=== PATIENT | female | born 1960 | race Caucasian/White ===

== ENCOUNTER 2016-06-25 21:55 | Emergency (ER) | payer MEDICAID ==
[~2016-06-25] VITALS: Ht 165.1 cm; Wt 56.8 kg
[~2016-06-25 21:55] MED LIST: DICL75 PO; ESTE400C PO; FIBE625T24 PO; FOSA70TA PO; HYDR-3533 PO; OMEG100010 PO; PRED5TAB PO; SULF500T9 PO; VITD400 PO
[2016-06-25 22:05] VITALS: BP 136/77; PULSE 63; RESP 20; TEMP 98.3; O2SAT 100
[2016-06-26] MEDS ORDERED: FOLI5CAP PO (01:09)
[2016-06-26] MEDS ORDERED: PRED5TAB PO (01:09)
[2016-06-26] MEDS ORDERED: NATU400T PO (01:09)
[2016-06-26] MEDS ORDERED: BIOT1000 PO (01:09)
[2016-06-26] MEDS ORDERED: OMEGCAP PO (01:09)
[2016-06-26] MEDS ORDERED: METH2.5T PO (01:09)
[2016-06-26] MEDS ORDERED: HYDR30CR2 RECTAL (01:55)
--- NOTE | 2016-06-26 01:57 | PD ---
HPI Chief Complaint: [employer] Problem/Complaint Time Seen by Provider: 11:23 Travel History International Travel<30 days: No Contact w/Intl Traveler<30days: No Traveled to known affect area: No History of Present Illness HPI 56-year-old female presents to the emergency department for complaint of painful mass to the rectum/perineum area 2 days. Patient denies fever chills nausea vomiting vaginal bleeding dysuria frequency urgency constipation change in bowel movements or rectal bleeding. Patient rates pain at worst 6/10 intensity presently 2/10 intensity. PFSH Past Medical History Narrative Medical Arthritis hypertension; hysterectomy orthopedic surgeries; no tobacco use; nursing notes reviewed Arthritis: Yes (RA) Cancer: No Diabetes: No Diminished Hearing: No Hepatitis: No Hiatal Hernia: No Hypertension: Yes Thyroid Disease: No PNEUMOCCOCAL Vaccine (Year): 2 : 1 Para: 1 Past Surgical History Abdominal Surgery: Yes Ear Surgery: No Endocrine Surgery: No Eye Surgery: No Genitourinary Surgery: No Gynecologic Surgery: Yes Hysterectomy: Yes (1994) Joint Replacement: Yes (BILATERAL KNUCKLE REPLACEMENTS) Oral Surgery: Yes (COMPLETE REMOVAL OF TEETH) Pacemaker: No Thoracic Surgery: No Other Surgery: Yes Social History Alcohol Use: No Tobacco Use: No Substance Use: No Allergies-Medications (Allergen,Severity, Reaction): Coded Allergies: No Known Allergies (Unverified , 06/26/16) Reported Meds & Prescriptions Reported Meds & Active Scripts Active Analpram-Hc Rectal (Hydrocortisone-Pramoxine Rectal) 2.5-1% Cream 1 Applic RECTAL QID PRN Apply as a thin film Reported Methotrexate 2.5 Mg Tab 2.5 Mg PO Q7D Biotin 1,000 Mcg Tab 1,000 Mg PO Folic Acid 5 Mg Cap 1 Mg PO DAILY Vitamin E 400 Unit Tab 400 Units PO DAILY Prednisone 5 Mg Tab 5 Mg PO DAILY [place]-3 Fish Oil/Vitamin (Fish Oil-Cholecalciferol) 1,000-1,000 Mg Cap 1 Cap PO DAILY Review of Systems Except as stated in HPI: all other systems reviewed are Neg General / Constitutional: No: Fever, Chills HENT: No: Congestion Cardiovascular: No: Chest Pain or Discomfort Respiratory: No: Shortness of Breath Gastrointestinal: No: Abdominal Pain Genitourinary: No: Decreased Urinary Output Musculoskeletal: No: Myalgias, Arthralgias Skin: Positive Lumps, No Rash Neurologic: No: Weakness Psychiatric: No: Anxiety Hematologic/Lymphatic: No: Lymph Node Enlargement Physical Exam Narrative GENERAL: Well-developed well-nourished female in no acute distress no respiratory distress SKIN: Warm and dry. HEAD: Normocephalic. EYES: No scleral icterus. No injection or drainage. NECK: Supple, trachea midline. No JVD or lymphadenopathy. CARDIOVASCULAR: Regular rate and rhythm without murmurs, gallops, or rubs. RESPIRATORY: Breath sounds equal bilaterally. No accessory muscle use. GASTROINTESTINAL: Abdomen soft, non-tender, nondistended. Pelvic/rectal: Pelvic exam is deferred as patient has normal perineum and obvious large prolapsed non-thrombosed external hemorrhoid with superficial excoriation. MUSCULOSKELETAL: No cyanosis, or edema. BACK: Nontender without obvious deformity. No CVA tenderness. Data Data Last Documented VS Vital Signs Date Time Temp Pulse Resp B/P Pulse Ox O2 Delivery O2 Flow Rate FiO2 06/26/16 02:10 69 20 132/74 98 06/25/16 22:05 98.3 MDM Medical Decision Making Medical Screen Exam Complete: Yes Emergency Medical Condition: Yes Medical Record Reviewed: Yes Differential Diagnosis Mass, abscess, hemorrhoids, cyst Narrative Course Patient with obvious prolapsed external hemorrhoid without thrombosis with evidence of superficial excoriation tender to palpation but partially reducible Patient is stable for outpatient management; provided prescription for Analpram ; encouraged to follow-up with her primary care physician and if symptoms do not improve referred to colorectal surgery for possible hemorrhoidectomy Diagnosis Primary Impression: Hemorrhoid Referrals: Colon Rectal Specialist call for appointment Patient Instructions: General Instructions Additional Instructions: Increase fluid hydration Increase dietary fiber May use fiber supplement with increased fluid hydration Follow-up with primary care physician or colorectal surgeon Use topical steroid cream to assist with symptoms Return to the emergency department for any concerns or change in condition Perform warm sitz bath 3-4 times daily Med/Other Pt SpecificInfo: Prescription(s) given Scripts Hydrocortisone-Pramoxine Rectal (Analpram-Hc Rectal)2.5-1% Cream1 Applic RECTAL QID PRN (ITCHING/INFLAMMATION) #1 TUBE Ref 0 Apply as a thin film Prov:Renetta Johnson MD 06/26/16 Disposition: 01 DISCHARGE HOME Condition: Stable Renetta Johnson MD Jun 26, 2016 01:56
[2016-06-26 02:10] VITALS: BP 132/74
[2016-08-15] MEDS ORDERED: FERR1TAB58 PO (10:58)
[2016-08-15] MEDS ORDERED: TIZA4TAB PO (10:58)
[2016-09-14] MEDS ORDERED: DILA2TAB2 PO (11:18)
== END 2016-06-26 02:25 | disposition home or self-care (01) ==
LOC: PHED 21:55
DX: K64.8 Other hemorrhoids (principal); I10 Essential (primary) hypertension
CPT/HCPCS: 99283

== ENCOUNTER → 2016-09-10 | Outpatient (CLI) | payer MEDICAID ==
[~2016-09-10] MED LIST changes: +BIOT1000 PO; -DICL75 PO; +DILA2TAB2 PO; -ESTE400C PO; +FERR1TAB58 PO; -FIBE625T24 PO; +FOLI5CAP PO; -FOSA70TA PO; -HYDR-3533 PO; +HYDR30CR2 RECTAL; +METH2.5T PO; +NATU400T PO; -OMEG100010 PO; +OMEGCAP PO; -SULF500T9 PO; +TIZA4TAB PO; -VITD400 PO
[2016-09-10 11:33] LABS: HEMATOCRIT 36.4 % (35.0-46.0); MEAN CORPUSCULAR HGB CONC 33.4 % (32.0-36.0); PLATELET COUNT 227 TH/MM3 (150-450); RED BLOOD COUNT 4.34 MIL/MM3 (4.00-5.30); RED CELL DISTRIBUTION WIDTH 13.3 % (11.6-17.2); REVIEW FLAG FINAL; WHITE BLOOD COUNT 5.8 TH/MM3 (4.0-11.0)
[2016-09-10 11:37] LABS: PROTHROMBIN TIME - PATIENT 10.5 SEC (9.8-11.6)
[2016-09-10 11:50] LABS: ALT (GPT) 14 U/L (10-53); ANION GAP 8 MEQ/L (5-15); AST (GOT) 13 U/L (15-37); BICARBONATE 29.3 MEQ/L (21.0-32.0); BLOOD UREA NITROGEN 12 MG/DL (7-18); CHLORIDE 105 MEQ/L (98-107); GLOMERULAR FILTRATION RATE 94 ML/MIN (>89); GLUCOSE,FASTING 89 MG/DL (74-99); POTASSIUM 3.5 MEQ/L (3.5-5.1); SODIUM (NA) 142 MEQ/L (136-145)
[2016-09-10 11:52] LABS: ALKALINE PHOSPHATASE 112 U/L (45-117); TOTAL BILIRUBIN ADULT 0.4 MG/DL (0.2-1.0)
--- NOTE | 2016-09-10 12:51 | RADRPT ---
EXAM DATE/TIME: 09/10/2016 12:03 [facility] COMPARISON: No previous studies available for comparison. INDICATIONS : Evaluate for pneumonia, pneumothorax and communicable diseases. Pre-op toe surgery MEDICAL HISTORY : None. SURGICAL HISTORY : None. ENCOUNTER: Initial ACUITY: 1 day PAIN SCORE: 0/10 LOCATION: chest FINDINGS: PA and lateral views of the chest demonstrate the lungs to be symmetrically aerated without evidence of mass, infiltrate or effusion. The cardiomediastinal contours are unremarkable. Osseous structure s are intact. CONCLUSION: No acute disease. Mauricio Beltre MD on September 10, 2016 at 12:50 Board Certified Radiologist. This report was verified electronically.
--- NOTE | 2016-09-11 11:52 | EKG ---
Date Performed: 09/10/2016 Time Performed: 11:20:16 PTAGE: 56 years EKG: SINUS BRADYCARDIA BORDERLINE ECG NO PREVIOUS TRACING DOCTOR: Miguel Nicole Interpretating Date/Time 09/11/2016 11:46:19
== END ==
LOC: CPRE 10:54
PROVIDERS: ATTEND Podiatrist Primary Podiatric Medicine
DX: Z01.810 Encounter for preprocedural cardiovascular examination (principal); Z01.811 Encounter for preprocedural respiratory examination; Z01.812 Encounter for preprocedural laboratory examination; M21.619 Bunion of unspecified foot; M21.969 Unspecified acquired deformity of unspecified lower leg; M20.41 Other hammer toe(s) (acquired), right foot; M06.9 Rheumatoid arthritis, unspecified; R94.31 Abnormal electrocardiogram [ECG] [EKG]
CPT/HCPCS: 36415; 71020; 80053; 85027; 85610; 93005

== ENCOUNTER → 2016-09-14 | Day surgery (SDC) | payer MEDICAID ==
[~2016-09-14] VITALS: Ht 165.1 cm; Wt 55.8 kg
[~2016-09-14] MED LIST changes: +*morphine SULFATE 8 MG/ML PERIprocedure ONLY ONE; +BUPIVACAINE HCL PF 0.5% 30 ML VIAL INFIL ONE; +BUPIVACAINE HCL PF 0.5% 30 ML VIAL ONE; +CHLORHEXIDINE GLUCONATE 2 % 1 PACK (2 CLOTHS) TOPICAL PRN; +DO NOT ADM ANY ANTICOAGULANT DRUGS PRN; +HYDROmorphone HCL 2 MG TAB PO PRN; +HYDROmorphone HCL PF 1 MG/ML VIAL IV PRN; +INSULIN HUMAN REGULAR 1,000 UNITS/10 ML VIAL SQ PRN; +LACTATED RINGER'S 1000 ML IV PRN; +METOPROLOL TARTRATE 25 MG TAB PO PRN; +NALOXONE HCL 0.4 MG/ML AMP IV PRN; +ONDANSETRON HCL 4 MG/2 ML VIAL IV PUSH ONE; +POVIDONE IODINE 5% (ANTISEPSIS KIT) 4 APPLICATIONS EACH NARE PRN; +PROPOFOL 200 MG/20 ML AMP IV ONE; +Post-op Orders (for Pharmacy) MISC XX ONE; +SODIUM CHLORID 0.9% 500 ML IV PRN; +SODIUM CHLORIDE 0.9% FLUSH 10 ML FLUSH IV FLUSH PRN; +SODIUM CHLORIDE 0.9% FLUSH 10 ML FLUSH IV FLUSH SCH; +ceFAZolin 2 GM PREMIX 50 ML IV SCH; +ePHEDrine/NS 25 MG/5 ML SYR IV ONE; +fentaNYL CITRATE 250 MCG/5 ML AMP ONE
[2016-09-14 09:04] VITALS: BP 133/80; PULSE 60; RESP 18; TEMP 97.8; O2SAT 100
--- NOTE | 2016-09-14 11:28 | PD.OP ---
Operative Report Date of Surgery: Sep 14, 2016 Preoperative Diagnosis: (1) Rheumatoid arthritis of foot (2) Hammertoes of both feet Right foot Postoperative Diagnosis: (1) Rheumatoid arthritis of foot (2) Hammertoes of both feet Right foot Procedure: Bradley Chris procedure with excision of all metatarsal heads and phalanxes bases right foot. Hammertoe arthroplasty repair toes two, 3, 4 and 5 right foot Anesthesia: General inhalation Surgeon: Efrain Teixeira DPM Rehab Department Manager(s): None Operation and Findings: Patient was brought to the operating room placed on the operating table in a supine position. A pneumatic ankle cuff was placed around the patient's right ankle after adequate web roll padding. Patient was given general inhalation anesthesia. The right foot was prepped and draped in the usual sterile manner and after the appropriate timeout was performed pneumatic ankle cuff was inflated to 250 mmHg. Total cuff time was 53 minutes. Right foot was lowered to the operating table and should be noted that the patient had a severe rheumatoid foot of the right. Plantar flexed metatarsals hammertoe deformities and bunion deformities of the right foot causing severe pain with ambulation. Attention was directed to the first ray of the right foot where a 6 cm linear incision was made over the metatarsal phalangeal joint medial to the extensor hallucis longus tendon. The incision was deepened down to the level of the bone of the first metatarsal and the base of the proximal phalanx. The head of the first metatarsal and the base of the proximal phalanx were freed up using an oscillating saw they were resected and removed from the wound. Attention was directed to the second interspace of the right foot where a 4 cm linear incision was made. The incision was deepened to the level of the second and third metatarsal heads.. Using sharp dissection and an oscillating saw the second and third metatarsal heads were resected. The bases of the proximal phalanxes of the second and third toes were also resected. Attention was directed to the fourth interspace where a curvilinear incision was made. The fourth metatarsal head and fifth metatarsal metatarsal head were identified and using an oscillating saw the fourth and fifth metatarsal heads where resected from the metatarsal phalangeal joints. Bases of the proximal phalanxes were also resected. Attention was then directed to the second toe where a 1 cm linear incision was made over the proximal interphalangeal joint. Using sharp dissection the head of the proximal phalanx was delivered in the wound and resected. The same procedure was then performed on the third, fourth and fifth toes of the right foot. Subcutaneous tissue was then reapproximated after flushing with copious amounts of sterile saline and closed using 3-0 Vicryl. Incisions of the first ray and second and fourth interspace were closed with surgical skin rosemary. The incisions over the arthroplasties of the second, third, fourth and fifth toes were closed with 4-0 Prolene. After the area appropriate sponge and instrument counts were noted to be correct. The incisions were anesthetized with 20 cc of 0.5% Marcaine plain. The pneumatic ankle cuff was deflated and it should be noted that vastus status returned to all digits of the right foot Bone was sent for pathology. Estimated blood loss was less than 10 cc. Patient tolerated the procedures and anesthesia well and left the OR to PACU in apparent satisfactory condition with all vital signs stable and vascular status intact to the right foot. Efrain Teixeira DPM Sep 14, 2016 11:28
--- NOTE | 2016-09-14 12:03 | RADRPT ---
EXAM DATE/TIME: 09/14/2016 12:32 [facility] COMPARISON: FOOT RIGHT COMPLETE ([id number]), January 24, 2015, 19:10. INDICATIONS : Post-op Estrada-Bradley procedure of right foot. MEDICAL HISTORY : None. SURGICAL HISTORY : Tonsillectomy. Bilateral hand surgeries. ENCOUNTER: Initial ACUITY: 1 day PAIN SCORE: 9/10 LOCATION: Right foot. FINDINGS: The patient is status post resection of the heads of the first through fifth metatarsals. There is al so partial resection of the first proximal phalanx, head of the second and fifth proximal phalanges a nd partial resection base of second phalanx. Overlying skin rosemary are noted and subcutaneous emphys kojo. There is mild soft tissue swelling. Plantar calcaneal spur and dorsal spurring of the tarsal jasmin icular and talus. CONCLUSION: Postsurgical changes are noted. Mauricio Beltre MD on September 14, 2016 at 12:00 Board Certified Radiologist. This report was verified electronically.
[2016-09-14 13:10] VITALS: BP 124/76; PULSE 56; RESP 18; TEMP 97.5; O2SAT 97
== END | disposition home or self-care (01) ==
LOC: HSDC 08:01
PROVIDERS: ATTEND Podiatrist Primary Podiatric Medicine
DX: M20.41 Other hammer toe(s) (acquired), right foot (principal); M21.611 Bunion of right foot; M06.9 Rheumatoid arthritis, unspecified; I10 Essential (primary) hypertension
CPT/HCPCS: 01480; 28111; 28114; 28285; 73630; 88304; 88311; J0690; J2270; J2405; J3010; L3260

== ENCOUNTER 2017-02-13 18:24 | Emergency (ER) | payer MEDICAID ==
[~2017-02-13] VITALS: Ht 165.1 cm; Wt 53.5 kg
[~2017-02-13 18:24] MED LIST changes: -*morphine SULFATE 8 MG/ML PERIprocedure ONLY ONE; -BUPIVACAINE HCL PF 0.5% 30 ML VIAL INFIL ONE; -BUPIVACAINE HCL PF 0.5% 30 ML VIAL ONE; -CHLORHEXIDINE GLUCONATE 2 % 1 PACK (2 CLOTHS) TOPICAL PRN; -DILA2TAB2 PO; -DO NOT ADM ANY ANTICOAGULANT DRUGS PRN; -FERR1TAB58 PO; +FERR325T8 PO; +FOLI400T PO; -FOLI5CAP PO; -HYDR30CR2 RECTAL; -HYDROmorphone HCL 2 MG TAB PO PRN; -HYDROmorphone HCL PF 1 MG/ML VIAL IV PRN; -INSULIN HUMAN REGULAR 1,000 UNITS/10 ML VIAL SQ PRN; -LACTATED RINGER'S 1000 ML IV PRN; -METOPROLOL TARTRATE 25 MG TAB PO PRN; -NALOXONE HCL 0.4 MG/ML AMP IV PRN; -NATU400T PO; -ONDANSETRON HCL 4 MG/2 ML VIAL IV PUSH ONE; -POVIDONE IODINE 5% (ANTISEPSIS KIT) 4 APPLICATIONS EACH NARE PRN; -PROPOFOL 200 MG/20 ML AMP IV ONE; -Post-op Orders (for Pharmacy) MISC XX ONE; -SODIUM CHLORID 0.9% 500 ML IV PRN; -SODIUM CHLORIDE 0.9% FLUSH 10 ML FLUSH IV FLUSH PRN; -SODIUM CHLORIDE 0.9% FLUSH 10 ML FLUSH IV FLUSH SCH; +VITA200C3 PO; +[UNRECOGNIZED DRUG - CODE] RECTAL; -ceFAZolin 2 GM PREMIX 50 ML IV SCH; -ePHEDrine/NS 25 MG/5 ML SYR IV ONE; -fentaNYL CITRATE 250 MCG/5 ML AMP ONE
[2017-02-13 18:26] VITALS: BP 139/62; PULSE 74; RESP 16; TEMP 98.2; O2SAT 99
[2017-02-13] MEDS ORDERED: TETANUS/DIPHTHERIA TOXOID ADULT 0.5 ML VIAL IM ONE (19:45)
--- NOTE | 2017-02-13 20:08 | PD ---
HPI Chief Complaint: Musculoskeletal Complaint Time Seen by Provider: 19:28 Travel History International Travel<30 days: No Contact w/Intl Traveler<30days: No Traveled to known affect area: No History of Present Illness HPI 56-year-old female presents to the emergency room for evaluation of left lateral rib pain after trip and fall just prior to arrival. Patient tripped on a step and struck the left side of her chest on the same step. She sustained a large abrasion to the left lateral ribs. She denies hitting her head or loss of consciousness. She reports left thumb injury but states it is not nearly as severe as her rib pain. Pain is worsened with any range of motion, touching the ribs, or petechia breathing. She denies difficulty breathing. Denies history of asthma or smoking. She has not taken anything for pain. Unknown last tetanus. PFSH Past Medical History Arthritis: Yes (RA) Cancer: No Cardiovascular Problems: No Diabetes: No Diminished Hearing: No Endocrine: No Gastrointestinal Disorders: Yes (gerd) Genitourinary: No Hepatitis: No Hiatal Hernia: No Hypertension: Yes Immune Disorder: Yes (RA) Medical other: Yes (arthritis anemia) Musculoskeletal: Yes (severe RA) Psychiatric: No Reproductive: No Respiratory: No Immunizations Current: No Thyroid Disease: No Tetanus Vaccination: < 5 Years Influenza Vaccination: Yes PNEUMOCCOCAL Vaccine (Year): 2 ?: Not : 1 Para: 1 Past Surgical History Abdominal Surgery: Yes Ear Surgery: No Endocrine Surgery: No Eye Surgery: No Genitourinary Surgery: No Gynecologic Surgery: Yes Hysterectomy: Yes (1994) Joint Replacement: No Oral Surgery: Yes (COMPLETE REMOVAL OF TEETH) Pacemaker: No Thoracic Surgery: No Other Surgery: Yes Social History Alcohol Use: No Tobacco Use: No Substance Use: No Allergies-Medications (Allergen,Severity, Reaction): Coded Allergies: lactose (Unverified Allergy, Severe, Nausea/Vomiting, 02/13/17) Reported Meds & Prescriptions Reported Meds & Active Scripts Active Percocet (Oxycodone-Acetaminophen) 5-325 mg Tab 1 Tab PO Q6H PRN Reported Ferrous Sulfate 325 Mg (65 Mg Iron) Tablet 65 Mg PO DAILY Folic Acid 0.4 Mg Tab 5 Mg PO DAILY Vitamin E 200 Unit Cap 400 Units PO DAILY Tizanidine (Tizanidine HCl) 4 Mg Tab 4 Mg PO TID PRN Methotrexate 2.5 Mg Tab 2.5 Mg PO Q7D Biotin 1,000 Mcg Tab 1,000 Mg PO Prednisone 5 Mg Tab 5 Mg PO DAILY [place]-3 Fish Oil/Vitamin (Fish Oil-Cholecalciferol) 1,000-1,000 Mg Cap 1 Cap PO DAILY Review of Systems Except as stated in HPI: all other systems reviewed are Neg Physical Exam Narrative GENERAL: Well-nourished, well-developed female in no acute distress. Afebrile. Ambulatory. SKIN: Focused skin assessment warm/dry. There is a 15 cm superficial abrasion to the left lateral rib cage that is nonbleeding. HEAD: Normocephalic. EYES: No scleral icterus. No injection or drainage. NECK: Supple, trachea midline. No JVD or lymphadenopathy. CARDIOVASCULAR: Regular rate and rhythm without murmurs, gallops, or rubs. RESPIRATORY: Breath sounds equal bilaterally. No accessory muscle use. CHEST: Extremely tender to palpation over left lateral ribs 4 through 7. Without deformity or crepitance. No retractions or use of accessory muscles. MUSCULOSKELETAL: No cyanosis. Trace edema of the left thumb. Full range of motion of the thumb. Less than 2 second capillary refill distally. Minimal tenderness to palpation of the bones. Data Data Last Documented VS Vital Signs Date Time Temp Pulse Resp B/P (MAP) Pulse Ox O2 Delivery O2 Flow Rate FiO2 02/13/17 18:26 98.2 74 16 139/62 (87) 99 Orders Orders Ribs, Uni (W/Exp Cxr-Min 3vw) (02/13/17 ) Tetanus/Diphtheria Tox Adult (Tetanus/Di (02/13/17 19:45) Resp Incentive Spirometry (02/13/17 ) MDM Medical Decision Making Medical Screen Exam Complete: Yes Emergency Medical Condition: Yes Medical Record Reviewed: Yes Differential Diagnosis Fracture, contusion, pneumothorax, abrasion, dislocation Narrative Course 56-year-old female presents to the emergency room for evaluation of left lateral rib pain after trip and fall just prior to arrival. Patient landed directly on the concrete with her chest. Denies hitting her head or loss of consciousness. Reports no difficulty breathing. Physical exam reveals a 15 cm superficial abrasion to the left lateral chest wall. It is extremely tender to palpation especially between ribs 4 and 7. No crepitus or obvious deformity. No increased work of breathing. Lungs sounds clear and equal bilaterally with some mild wheezes. Patient was updated on tetanus. X-ray shows multiple rib fractures without pneumothorax. Patient was given incentive spirometer in the emergency room. Discharged with prescription for Percocet and lidocaine patches and told to follow-up the primary care physician or return for worsening symptoms. She understands and agrees to plan. Diagnosis Primary Impression: Multiple rib fractures Qualified Codes: S22.42XA - Multiple fractures of ribs, left side, initial encounter for closed fracture Referrals: Primary Care Physician Additional Instructions: Rest and drink plenty of fluids. Take Percocet with food as directed, as needed for pain. Do not drink alcohol or drive while taking this medication. Lidocaine patches as directed, as needed for pain. Apply ice to the affected area for 20 minutes at a time, as needed for pain and swelling. Follow-up with a primary care physician. Return to the emergency room for worsening symptoms. Med/Other Pt SpecificInfo: Prescription(s) given Scripts Oxycodone-Acetaminophen (Percocet) 5-325 mg Tab 1 TAB PO Q6H Y for PAIN, #15 TAB 0 Refills Prov: Remington Boyd MD 02/13/17 Disposition: 01 DISCHARGE HOME Condition: Stable Janet Bennett Feb 13, 2017 20:08
--- NOTE | 2017-02-13 20:14 | RADRPT ---
EXAM DATE/TIME: 02/13/2017 19:49 [facility] COMPARISON: No previous studies available for comparison. INDICATIONS : Left lower rib pain post fall. MEDICAL HISTORY : None. SURGICAL HISTORY : None. ENCOUNTER: Initial ACUITY: 1 day PAIN SCORE: 7/10 LOCATION: Left lower chest FINDINGS: Nondisplaced fractures can be seen laterally of several left ribs, probably the fifth, sixth and akhil nth. Other ribs are intact. No evidence of hemothorax or pneumothorax. Lungs are clear. CONCLUSION: Nondisplaced fractures laterally of several left ribs as above. Pawan Souza MD on February 13, 2017 at 20:12 Board Certified Radiologist. This report was verified electronically.
[2017-02-13] MEDS ORDERED: PERC5TAB12 PO (20:18)
[2017-02-13] MEDS ORDERED: LIDO1PAD52 TOPICAL (20:29)
== END 2017-02-13 20:35 | disposition home or self-care (01) ==
LOC: PHEFT 18:24
DX: S22.42XA Multiple fractures of ribs, left side, initial encounter for closed fracture (principal); S20.312A Abrasion of left front wall of thorax, initial encounter; M79.645 Pain in left finger(s); I10 Essential (primary) hypertension; Z23 Encounter for immunization; Z87.39 Personal history of other diseases of the musculoskeletal system and connective tissue; Z87.19 Personal history of other diseases of the digestive system; W01.198A Fall on same level from slipping, tripping and stumbling with subsequent striking against other object, initial encounter
CPT/HCPCS: 71101; 90471; 90714; 94150

== ENCOUNTER 2017-07-25 18:40 | Emergency (ER) | payer MEDICAID ==
[~2017-07-25] VITALS: Ht 165.1 cm; Wt 55.0 kg
[~2017-07-25 18:40] MED LIST changes: +FERR325T18 PO; -FERR325T8 PO; +LIDO1PAD52 TOPICAL; +PERC5TAB12 PO; -[UNRECOGNIZED DRUG - CODE] RECTAL
[2017-07-25 18:44] VITALS: BP 138/81; PULSE 80; RESP 16; TEMP 98.1; O2SAT 100
[2017-07-25] MEDS ORDERED: MEMA1CAP3 PO (19:16)
[2017-07-25] MEDS ORDERED: ALEN35TA24 PO (19:16)
[2017-07-25] MEDS ORDERED: ALEN5TAB (19:16)
[2017-07-25] MEDS ORDERED: HYDR200T3 PO (19:16)
[2017-07-25] MEDS ORDERED: ASPI1TAB57 PO (19:16)
[2017-07-25] MEDS ORDERED: REST0.05 EACH EYE (19:16)
[2017-07-25] MEDS ORDERED: NIFE20 PO (19:16)
--- NOTE | 2017-07-25 20:15 | PD ---
HPI Chief Complaint: Injury Time Seen by Provider: 19:49 Travel History International Travel<30 days: No Contact w/Intl Traveler<30days: No Traveled to known affect area: No History of Present Illness HPI This is a 57-year-old female here with tailbone pain after she fell attempting to sit in a chair. She fell onto her buttocks hitting the floor. Injury occurred today. Denies head injury or loss of consciousness. Denies any other injuries. Denies abdominal pain or blood in stool. She has pain when sitting which is relieved when she offsets her weight. Symptom severity is moderate. PFSH Past Medical History Arthritis: Yes (RA) Cancer: No Cardiovascular Problems: No Diabetes: No Diminished Hearing: No Endocrine: No Gastrointestinal Disorders: Yes (gerd) Genitourinary: No Hepatitis: No Hiatal Hernia: No Hypertension: Yes Immune Disorder: Yes (RA) Medical other: Yes (arthritis anemia) Musculoskeletal: Yes (severe RA) Psychiatric: No Reproductive: No Respiratory: No Immunizations Current: No Thyroid Disease: No Tetanus Vaccination: < 5 Years Influenza Vaccination: Yes PNEUMOCCOCAL Vaccine (Year): 2 : 1 Para: 1 Past Surgical History Abdominal Surgery: Yes Ear Surgery: No Endocrine Surgery: No Eye Surgery: No Genitourinary Surgery: No Gynecologic Surgery: Yes Hysterectomy: Yes (1994) Joint Replacement: No Oral Surgery: Yes (COMPLETE REMOVAL OF TEETH) Pacemaker: No Thoracic Surgery: No Other Surgery: Yes Social History Alcohol Use: No Tobacco Use: No Substance Use: No Allergies-Medications (Allergen,Severity, Reaction): Coded Allergies: lactose (Unverified Allergy, Severe, Nausea/Vomiting, 07/25/17) Reported Meds & Prescriptions Reported Meds & Active Scripts Active Reported Restasis Opth (Cyclosporine Opth) 0.05% Emul 1 Drop EACH EYE DAILY Namzaric (Memantine-Donepezil) 7-10 mg Cap 1 Cap PO HS Hydroxychloroquine (Hydroxychloroquine Sulfate) 200 Mg Tab 200 Mg PO DAILY Takw with food Nifedipine 20 Mg Cap 30 Mg PO DAILY Aspirin 81 (Aspirin) 81 Mg Tabdr 81 Mg PO DAILY Alendronate (Alendronate Sodium) 35 Mg Tab 35 Mg PO Q7D Alendronate (Alendronate Sodium) 5 Mg Tab 5 Mg DAILY Folic Acid 0.4 Mg Tab 5 Mg PO DAILY Methotrexate 2.5 Mg Tab 2.5 Mg PO Q7D Review of Systems Except as stated in HPI: all other systems reviewed are Neg Physical Exam Narrative GENERAL: Alert and well-appearing 57-year-old female SKIN: Warm and dry. HEAD: Normocephalic. Atraumatic EYES: No injection or drainage. NECK: Supple. No midline spine tenderness CARDIOVASCULAR: Regular rate and rhythm. No murmur RESPIRATORY: Breath sounds equal bilaterally. No accessory muscle use. GASTROINTESTINAL: Abdomen soft, non-tender, nondistended. MUSCULOSKELETAL: No cyanosis, or edema. Normal strength and sensation in lower extremities. Pelvis is stable. BACK: + Tenderness to the coccyx. No crepitus. Without obvious deformity. No tenderness of the cervical, thoracic, lumbar spine. No CVA tenderness. Data Data Last Documented VS Vital Signs Date Time Temp Pulse Resp B/P (MAP) Pulse Ox O2 Delivery O2 Flow Rate FiO2 07/25/17 18:44 98.1 80 16 138/81 (100) 100 Orders Orders Pelvis, Ap Only (Routine) (07/25/17 ) MDM Medical Decision Making Medical Screen Exam Complete: Yes Emergency Medical Condition: Yes Differential Diagnosis Coccyx fracture, coccyx contusion, pelvic fracture Narrative Course This is a 57-year-old female here for evaluation of tailbone pain after she fell into a seated position onto the floor. She has a normal neurologic exam. Pelvis x-ray: Negative for fracture Patient will be treated for a coccyx injury. She was instructed to follow-up with her primary doctor. Return if she developed new or worsening symptoms. Diagnosis Primary Impression: Injury of coccyx Qualified Codes: S39.92XA - Unspecified injury of lower back, initial encounter Referrals: Primary Care Physician Additional Instructions: Medication as directed. Follow-up the primary doctor. Return if he developed new or worsening symptoms. Scripts Tramadol (Ultram) 50 Mg Tab 50 MG PO Q6H Y for PAIN, #12 TAB 0 Refills Prov: Patricia Hill 07/25/17 Disposition: 01 DISCHARGE HOME Condition: Stable Patricia Hill Jul 25, 2017 20:15
--- NOTE | 2017-07-25 20:16 | RADRPT ---
EXAM DATE/TIME: 07/25/2017 19:56 [facility] COMPARISON: PELVIS AP ONLY, January 24, 2015, 3:52. INDICATIONS : Patient states she fell from a chair on to her bottom, posterior pelvic pain. MEDICAL HISTORY : None. SURGICAL HISTORY : None. ENCOUNTER: Initial ACUITY: 1 day PAIN SCORE: 9/10 LOCATION: pelvis FINDINGS: A single frontal view of the pelvis demonstrates no evidence of fracture. The bony pelvic ring is in tact. Bony mineralization is normal. Surgical clips in the left pelvis. The soft tissues are intact . CONCLUSION: 1. No acute fracture or dislocation. Hill Morales MD on July 25, 2017 at 20:13 Board Certified Radiologist. This report was verified electronically.
[2017-07-25] MEDS ORDERED: TRAM50 PO (20:26)
[2017-07-25] MEDS ORDERED: traMADol HCL 50 MG TAB PO ONE (20:30)
== END 2017-07-25 20:59 | disposition home or self-care (01) ==
LOC: PHEFT 18:40
DX: S39.92XA Unspecified injury of lower back, initial encounter (principal); M06.9 Rheumatoid arthritis, unspecified; K21.9 Gastro-esophageal reflux disease without esophagitis; I10 Essential (primary) hypertension; D64.9 Anemia, unspecified; W07.XXXA Fall from chair, initial encounter; Z79.82 Long term (current) use of aspirin; Z79.899 Other long term (current) drug therapy
CPT/HCPCS: 72170; 99283